=== PATIENT | male | born 1960 | race Asian ===

== ENCOUNTER 2024-05-29 09:57 | Day surgery (SDC) | payer OTHER ==
[~2024-05-29] VITALS: Ht 170.2 cm; Wt 72.6 kg
[2024-05-29] MEDS ORDERED: fentaNYL citrate 0.05 MG/ML VIAL ONE (11:50)
[2024-05-29] MEDS ORDERED: LIDOCAINE 2% 100 MG/5 ML UJET TP ONE (11:51)
[2024-05-29] MEDS: fentaNYL citrate 0.05 MG/ML VIAL IVP ONE (12:13)
== END 2024-05-29 13:15 | disposition home or self-care (01) ==
LOC: MDS 09:57 → MMU 10:28 → MDS 13:15
PROVIDERS: ATTEND Internal Medicine Gastroenterology
DX: Z12.11 Encounter for screening for malignant neoplasm of colon (principal); D12.0 Benign neoplasm of cecum; K62.1 Rectal polyp; F17.200 Nicotine dependence, unspecified, uncomplicated; Z87.442 Personal history of urinary calculi
CPT/HCPCS: 45385; J3010